=== PATIENT | female | born 1945 | race Two or more races ===

== ENCOUNTER 2019-12-12 01:01 | Inpatient (IN) | payer OTHER ==
[~2019-12-12] VITALS: Ht 157.5 cm; Wt 68.0 kg
== END 2019-12-15 12:37 | DRG 481 ==
LOC: ER 01:01 → SEC-K 10:57 → SURG 10:57
PROVIDERS: Orthopaedic Surgery; ADMIT Internal Medicine; ATTEND Internal Medicine
PROC: 0QS736Z Reposition Left Upper Femur with Intramedullary Internal Fixation Device, Percutaneous Approach (ICD-10-PCS; principal; 2019-12-12 14:00)
PROC: BR2CZZZ Computerized Tomography (CT Scan) of Pelvis (ICD-10-PCS; 2019-12-13)
PROC: 30233N1 Transfusion of Nonautologous Red Blood Cells into Peripheral Vein, Percutaneous Approach (ICD-10-PCS; 2019-12-15)
DX: S72.142A Displaced intertrochanteric fracture of left femur, initial encounter for closed fracture (principal); D62 Acute posthemorrhagic anemia; W07.XXXA Fall from chair, initial encounter; Y92.008 Other place in unspecified non-institutional (private) residence as the place of occurrence of the external cause

== ENCOUNTER 2020-01-27 11:59 | Outpatient (CLI) | payer OTHER | END 2020-01-27 12:08 | disposition home or self-care (01) | LOC: RAD 11:59 | PROVIDERS: ATTEND Orthopaedic Surgery | DX: S72.142A Displaced intertrochanteric fracture of left femur, initial encounter for closed fracture (principal); Z76.89 Persons encountering health services in other specified circumstances; S20.222D Contusion of left back wall of thorax, subsequent encounter ==

== ENCOUNTER 2020-02-19 11:06 | Outpatient (CLI) | payer OTHER | END 2020-02-19 11:12 | disposition home or self-care (01) | LOC: LAB 11:06 | PROVIDERS: ATTEND Orthopaedic Surgery | DX: M85.88 Other specified disorders of bone density and structure, other site (principal); E55.9 Vitamin D deficiency, unspecified; E21.2 Other hyperparathyroidism; E88.89 Other specified metabolic disorders; E56.1 Deficiency of vitamin K; M81.8 Other osteoporosis without current pathological fracture ==

== ENCOUNTER 2020-03-23 11:25 | Outpatient (CLI) | payer OTHER | END 2020-03-23 11:32 | disposition home or self-care (01) | LOC: RAD 11:25 | PROVIDERS: ATTEND Orthopaedic Surgery | DX: S72.142A Displaced intertrochanteric fracture of left femur, initial encounter for closed fracture (principal) ==

== ENCOUNTER 2020-04-13 14:19 | Outpatient (CLI) | payer OTHER | END 2020-04-13 14:26 | disposition home or self-care (01) | LOC: RAD 14:19 | PROVIDERS: ATTEND Orthopaedic Surgery | DX: M17.12 Unilateral primary osteoarthritis, left knee (principal); M25.562 Pain in left knee ==

== ENCOUNTER 2021-10-13 11:13 | Outpatient (CLI) | payer OTHER | END 2021-10-13 11:14 | disposition home or self-care (01) | LOC: LAB 11:13 | PROVIDERS: ATTEND Orthopaedic Surgery | DX: E55.9 Vitamin D deficiency, unspecified (principal); M85.9 Disorder of bone density and structure, unspecified; E56.1 Deficiency of vitamin K; E21.3 Hyperparathyroidism, unspecified; E88.9 Metabolic disorder, unspecified; M81.8 Other osteoporosis without current pathological fracture; E11.9 Type 2 diabetes mellitus without complications; R31.9 Hematuria, unspecified; Z12.11 Encounter for screening for malignant neoplasm of colon; N39.0 Urinary tract infection, site not specified; D64.9 Anemia, unspecified; E78.5 Hyperlipidemia, unspecified; E03.9 Hypothyroidism, unspecified ==

== ENCOUNTER 2022-02-20 10:21 | Outpatient (CLI) | payer OTHER | END 2022-02-20 15:33 | disposition home or self-care (01) | LOC: LAB 10:21 | PROVIDERS: ATTEND Orthopaedic Surgery | DX: E55.9 Vitamin D deficiency, unspecified (principal); M85.9 Disorder of bone density and structure, unspecified; E56.1 Deficiency of vitamin K; E21.3 Hyperparathyroidism, unspecified; E88.9 Metabolic disorder, unspecified; M81.8 Other osteoporosis without current pathological fracture ==

== ENCOUNTER 2022-02-20 11:19 | Outpatient (CLI) | payer OTHER | END 2022-02-20 11:36 | disposition home or self-care (01) | LOC: RAD 11:19 | PROVIDERS: ATTEND Orthopaedic Surgery | DX: M17.12 Unilateral primary osteoarthritis, left knee (principal) ==

== ENCOUNTER 2022-02-20 13:18 | Outpatient (CLI) | payer OTHER | END 2022-02-20 13:19 | disposition home or self-care (01) | LOC: NUCLEAR 13:18 | PROVIDERS: ATTEND Orthopaedic Surgery | DX: M81.0 Age-related osteoporosis without current pathological fracture (principal) ==